=== PATIENT | male | born 1955 | race Caucasian/White ===

== ENCOUNTER 2018-07-16 08:10 | Day surgery (SDC) | payer OTHER ==
[~2018-07-16 08:10] MED LIST: Lactated Ringers 1,000 ML IV SCH
[2018-07-16] MEDS ORDERED: Midazolam 1 MG/ML 2 ML SDV ONE (08:13)
[2018-07-16] MEDS ORDERED: fentaNYL 100 MCG/2 ML SDV ONE (08:13)
[2018-07-16] MEDS ORDERED: Propofol 200 MG/20 ML SDV ONE (08:13)
--- NOTE | 2018-07-16 09:22 | PCM.PREANE ---
Preanesthetic Assessment - Procedure Proposed Procedure: Colonoscopy - Anesthesia/Transfusion/Family Hx Anesthesia History: Prior Anesthesia Without Reaction Family History of Anesthesia Reaction: No Transfusion History: No Prior Transfusion(s) Intubation History: Unknown - Review of Systems General: No Symptoms Pulmonary: No Symptoms Cardiovascular: Other (HTN) Gastrointestinal: No Symptoms Neurological: No Symptoms Other: Reports: Diabetes (type II) - Physical Assessment NPO Status Date: 07/15/18 O2 Sat by Pulse Oximetry: 97 Respiratory Rate: 15 Vital Signs: Last Vital Signs Temp 97.5 F 07/16/18 08:25 Pulse 84 07/16/18 08:25 Resp 15 07/16/18 08:25 BP 158/95 H 07/16/18 08:25 Pulse Ox 97 07/16/18 08:25 Height: 5 ft 11 in Weight: 233 lb Mental Status: Alert & Oriented x3 Airway Class: Mallampati = 1 Dentition: Reports: Normal Dentition Thyro-Mental Finger Breadths: 3 Mouth Opening Finger Breadths: 3 ROM/Head Extension: Limited/Partial (short ,thick neck) Lungs: Clear to Auscultation, Normal Respiratory Effort Cardiovascular: Regular Rate, Regular Rhythm, No Murmurs - Lab Values: Laboratory Last Values POC Glucose 154 mg/dL (60-110) H 07/16/18 08:34 - Allergies Allergies/Adverse Reactions: Allergies Allergy/AdvReac Type Severity Reaction Status Date / Time No Known Allergies Allergy Verified 07/13/18 08:34 - Blood Blood Available: No Product(s) Available: None - Anesthesia Plan Pre-Op Medication Ordered: None - Acknowledgements Anesthesia Type Planned: MAC Pt an Appropriate Candidate for the Planned Anesthesia: Yes Alternatives and Risks of Anesthesia Discussed w Pt/Guardian: Yes Pt/Guardian Understands and Agrees with Anesthesia Plan: Yes PreAnesthesia Questionnaire Cardiovascular History: Reports: High Cholesterol, Hypertension Gastrointestinal History: Reports: None Genitourinary History: Reports: Renal Calculus Endocrine/Metabolic History: Reports: Diabetes, Type II, Obesity/BMI 30+ Oncologic (Cancer) History: Reports: Basal Cell Carcinoma Other Oncologic History: basal cell cancer to face Dermatologic History: Reports: None - Past Surgical History Head Surgeries/Procedures: Reports: None GI Surgical History: Reports: Hernia, Inguinal Dermatological Surgical History: Reports: Skin Biopsy - SUBSTANCE USE Smoking Status *Q: Never Smoker Recreational Drug Use History: No - HOME MEDS Home Medications: Home Meds Losartan Potassium 25 mg PO DAILY 07/13/18 [History] atorvaSTATin Calcium [Atorvastatin Calcium] 20 mg PO DAILY 07/13/18 [History] glipiZIDE [Glipizide ER] 5 mg PO BID 07/13/18 [History] metFORMIN HCl [Metformin HCl] 1,000 mg PO BID 07/13/18 [History] - CURRENT (IN HOUSE) MEDS Current Meds: Current Medications Lactated Ringer's (Ringers, Lactated) 1,000 mls @ 125 mls/hr IV ASD[facility]RECTED [facility] Last Admin: 07/16/18 08:47 Dose: 125 mls/hr Discontinued Medications Fentanyl (Sublimaze) Confirm Administered Dose 100 mcg .ROUTE .STK-MED ONE Stop: 07/16/18 08:14 Midazolam HCl (Versed 1 Mg/Ml) Confirm Administered Dose 2 mg .ROUTE .STK-MED ONE Stop: 07/16/18 08:14 Propofol (Diprivan 20 Ml) Confirm Administered Dose 200 mg .ROUTE .STK-MED ONE Stop: 07/16/18 08:14
--- NOTE | 2018-07-16 10:07 | PCM.OPNOTE ---
- General Post-Op/Procedure Note Date of Surgery/Procedure: 07/16/18 Operative Procedure(s): colonoscopy w bx Findings: see dict [id number] Pre Op Diagnosis: hx of colon polyp Post-Op Diagnosis: colon polyp and diverticulosis Anesthesia Technique: Moderate Sedation Primary Surgeon: Chris Giron Pathology: 4 mm sessile polyp at 1 m when scope went out Complications: None Condition: Good
--- NOTE | 2018-07-16 10:25 | PCM.POSTAN ---
POST ANESTHESIA ASSESSMENT - MENTAL STATUS Mental Status: Alert, Oriented - RESPIRATORY Respiratory Status: Respiratory Rate WNL, Airway Patent, O2 Saturation Stable - CARDIOVASCULAR CV Status: Pulse Rate WNL, Blood Pressure Stable - GASTROINTESTINAL GI Status: No Symptoms - PAIN Pain Score: 0 - POST OP HYDRATION Hydration Status: Adequate & Stable
--- NOTE | 2018-07-16 10:41 | PCM48HPAN ---
Post Anesthesia Note - EVALUATION WITHIN 48HRS OF ANESTHETIC Vital Signs in Normal Range: Yes Patient Participated in Evaluation: Yes Respiratory Function Stable: Yes Airway Patent: Yes Cardiovascular Function Stable: Yes Hydration Status Stable: Yes Pain Control Satisfactory: Yes Nausea and Vomiting Control Satisfactory: Yes Mental Status Recovered: Yes Resp Rate: 15
--- NOTE | 2018-07-16 11:19 | OR ---
SURGEON: Chris Giron MD DATE OF PROCEDURE: 07/16/2018 PREOPERATIVE DIAGNOSES: 1. Surveillance colonoscopy. 2. History of colon polyp. POSTOPERATIVE DIAGNOSES: 1. Colon polyp. 2. Diverticulosis. PROCEDURE PERFORMED: Colonoscopy with biopsy. PROCEDURE IN DETAIL: The patient was taken to the endoscopy room. A time out was called, patient identified, and procedure identified. Diprivan was then administrated. Patient went from awake to sleep, hearing doctor talking or door closing is normal. Perineum inspection and digital examination were then performed. A well- lubricated colonoscope was gently inserted through the rectum, advanced past the rectosigmoid junction, the descending colon, splenic flexure, transverse colon, hepatic flexure, ascending colon, arrived to the cecum. Cecum was identified as dictated in the finding. Then the scope was carefully withdrawn while attention was paid to the mucosal surface for any abnormality. Air will be sucked out during the scope withdrawal. At the rectum, retroflexed to examine any rectal diseases, fistula or hemorrhoids. During mucosal examination, abnormality or polyp was noted; picture taken and biopsy performed. Patient tolerated procedure well. There were no intraoperative complications, and Dr. Giron was present throughout the whole procedure. FINDINGS: 1. The patient is easily sedated with [employer] and Diprivan, the patient is soundly snoring. 2. Bowel prep is left to be desirable with large amount of opaque liquid stool compromised the study. Colon is rather straight forward. Cecum indicated by ileocecal fold, one-to-one indentation, light emittance, appendiceal orifice. Mucosa examined upon scope pulling out and the patient has mild diverticulosis at the left colon and concentrating in the splenic flexure. The patient also has very small, tiny sessile polyp, 3 to 4 mm at distance 1 meter right at the cecum, which was removed with cold biopsy forceps several times, sent to pathology. Other than that, there is no mass, growth, inflammation, stricture, AV malformation, bleeding ulcer observed. The patient has mild external hemorrhoids. No internal hemorrhoids. The patient would benefit from repeat colonoscopy 10 years from today or if clinically indicated otherwise or if the polyp pathology indicates otherwise. DOLORES / MAXIM /[id number]
== END 2018-07-16 10:35 | disposition home or self-care (01) ==
LOC: MW.SDS 08:10
PROVIDERS: ATTEND Surgery
DX: Z12.11 Encounter for screening for malignant neoplasm of colon (principal); D12.0 Benign neoplasm of cecum; K57.30 Diverticulosis of large intestine without perforation or abscess without bleeding; K64.4 Residual hemorrhoidal skin tags; I10 Essential (primary) hypertension; E11.9 Type 2 diabetes mellitus without complications; Z79.899 Other long term (current) drug therapy; Z98.890 Other specified postprocedural states; Z80.0 Family history of malignant neoplasm of digestive organs
CPT/HCPCS: 45380; 82962; J2250; J2704; J3010; J7120